=== PATIENT | female | born 2000 | race Caucasian/White ===

== ENCOUNTER 2020-09-10 19:16 | Emergency (ER) | payer OTHER, SELFPAY ==
--- NOTE | ~2020-09-10 | CT_ITS ---
EXAMINATION: CT abdomen pelvis w con INDICATION: Right lower quadrant pain TECHNIQUE: Computed tomographic images of the abdomen and pelvis were obtained after the administrati on of 100 cc of Omnipaque 350 intravenous contrast. The dose-length product (DLP) was 415.92 mGy-cm. Automated exposure control and iterative reconstruction technique were employed. COMPARISON: None available FINDINGS: The lung bases are clear. The heart size is normal. The liver, spleen, pancreas, gallbladde r, and adrenal glands are normal. The kidneys are unremarkable. The appendix is normal. No pathologic ally enlarged abdominal or pelvic lymph nodes are identified. There is no free intraperitoneal gas or evidence of bowel obstruction. A contraceptive device is noted in the vagina. IMPRESSION: 1. No CT correlate for the patient's symptoms. Reviewed, dictated and finalized at location A.
[2020-09-10 19:28] VITALS: BP 122/78; PULSE 105; RESP 20; TEMP 36.4; O2SAT 98
--- NOTE | 2020-09-10 19:34 | ED.GENADULT ---
HPI - General Adult General Chief complaint: Abdominal Pain Stated complaint: righ side abdominal pain Time Seen by Provider: 09/10/20 19:30 Source: RN notes reviewed History of Present Illness HPI narrative: Patient presents emergency department from home for abdominal pain. Patient states abdominal pain has been ongoing for the past 1 month. She states the pain initially began was over on the right side of her abdomen she called her PCP and was placed on omeprazole which she did have improvement of the pain. She states the pain has returned to the past several weeks and progressively worsen she denies any fevers or chills chest pain shortness of breath nausea vomiting diarrhea or any other symptoms Related Data Allergies Allergy/AdvReac Type Severity Reaction Status Date / Time No Known Allergies Allergy Unverified 09/13/18 20:19 Review of Systems Review of Systems: Narrative: Gen.: Denies fevers or chills ENT: Denies congestion Respiratory: Denies shortness of breath or cough CV: Denies chest pain or palpitations GI: See HPI denies burning, urgency, frequency or hematuria Musculoskeletal: Denies back pain or muscle pain Neuro: Denies numbness, tingling, weakness or focal weakness Skin: Denies rash Except as documented, all other systems reviewed and negative PMFSH Past Medical History Medical History (Updated 09/10/20 @ 21:30 by Simone Griffin DO) Patient denies significant medical history Social History Social History (Updated 09/10/20 @ 19:35 by Simone Griffin DO) Smoking status: Never smoker Exam Narrative: Exam Narrative: APPEARANCE: No acute distress, nontoxic, resting in bed HEENT: Normocephalic, atraumatic, OMM RESPIRATORY: No respiratory distress, clear to auscultation bilaterally with no rhonchi wheezing or rales CARDIOVASCULAR: RRR s murmur ABDOMINAL: Soft nondistended tender palpation in epigastric and right upper quadrant no tenderness right lower quadrant and left lower quadrant left upper quadrant no rebound or guarding MUSCULOSKELETAl: Moves all extremities. No clubbing, cyanosis or edema. NEURO: Awake and alert. Following commands, speech normal, no focal deficits SKIN:: Warm, dry. Normal Color PSYCHIATRIC: Normal affect/mood Course Course Emergency Course: Patient states abdominal pain has resolved following GI cocktail Patient states that they are feeling much better at this time. States abdominal pain has resolved. Repeat abdominal exam shows the patient's abdomen to be soft and nontender. Discussed with patient results of workup and diagnosis. Discussed need for follow-up with primary care physician, reasons to return to the emergency department in proper use of medication. Patient understands and agrees to current treatment plan Vital Signs Vital signs: Vital Signs Temperature 97.5 F L 09/10/20 19:28 Pulse Rate 105 H 09/10/20 19:28 Respiratory Rate 20 09/10/20 19:28 Blood Pressure 122/78 09/10/20 19:28 Pulse Oximetry 98 09/10/20 19:28 Temperature 97.5 F L 09/10/20 19:28 Pulse Rate 105 H 09/10/20 19:28 Respiratory Rate 20 09/10/20 19:28 Blood Pressure 107/65 09/10/20 21:02 Pulse Oximetry 98 09/10/20 19:28 Medical Decision Making MDM Narrative Medical decision making narrative: Patient's abdomen is soft without significant pain or signs of surgical abdomen on serial exams. Lab and x-ray evaluations are reviewed and patient is felt to be a reasonable candidate for outpatient management. Patient was instructed as to limitations of x-ray and laboratory evaluation and encouraged to return to ED or primary physician for repeat exam in 12 hours if continued or worsening pain Vital Signs Vital Signs: Vital Signs Temperature 97.5 F L 09/10/20 19:28 Pulse Rate 105 H 09/10/20 19:28 Respiratory Rate 20 09/10/20 19:28 Blood Pressure 122/78 09/10/20 19:28 Pulse Oximetry 98 09/10/20 19:28 Temperature 97.5 F L 09/10/20 19:28 Pulse
[2020-09-10] MEDS: SODIUM CHLORIDE 0.9% IV 1,000 ML 999 ML IV CONT (20:03)
[2020-09-10 20:17] LABS: Basophils Percent Auto 0.5 % (0.2-1.2); Eosinophils Absolute Auto 0.1 K/mm3 (0-0.3); Eosinophils Percent Auto 1.5 % (0-4.4); Hematocrit 41.4 % (37.0-47.0); Hemoglobin 13.8 g/dL (12.0-15.0); Immature Granulocyte Absolute 0.01 K/mm3 (0.00-0.031); Immature Granulocyte Percent A 0.1 % (0-0.5); Lymphocytes Absolute Auto 2.49 K/mm3 (0.9-3.2); Lymphocytes Percent Auto 33.9 % (18.3-44.2); Mean Corpuscular HGB Conc 33.3 g/dl (32-36); Mean Corpuscular Hemoglobin 28.8 pg (26-34); Mean Corpuscular Volume 86.3 fl (80-100); Mean Platelet Volume 10.9 fl (7.4-10.4); Monocytes Absolute Auto 0.6 K/mm3 (0.1-0.6); Monocytes Percent Auto 7.8 % (2.6-8.5); Neutrophils Absolute Auto 4.1 K/mm3 (1.3-6.7); Neutrophils Percent Auto 56.2 % (45.5-73.1); Platelet Count Result 189 k/mm3 (150-375); Red Cell Distribution Width 11.9 % (11.5-14.5); White Blood Count 7.4 K/mm3 (4.5-10.0)
[2020-09-10 20:25] LABS: Add Urine Microscopic? YES; Appearance Urine Cloudy (Clear); Bacteria Urine Trace /hpf; Bilirubin Urine Negative (Negative); Blood Urine Negative (Negative); Color Urine Yellow (Yellow); Glucose Urine UA Negative (Negative); Ketones Urine Negative (Negative); Leukocyte Esterase Ur Negative LEU/UL (Negative); Mucus Urine Heavy /lpf; Nitrate Urine Negative (Negative); Protein Urine 1+ mg/dL (Negative); RBC Urine 0-2 /hpf (0-2); Specific Grav Ur 1.025 (1.001-1.035); Squamous Epithelial Cell Urine Rare /hpf (Few); Urobilinogen Urine Negative mg/dL (<2.0); WBC Urine 0-3 /hpf
[2020-09-10 20:29] LABS: Alanine Aminotransferase 23 U/L (4-35); Alkaline Phosphatase 60 U/L (38-126); Anion Gap 5 mmol/L (8-16); Aspartate Amino Transferase 23 U/L (14-36); Bilirubin,Total 0.2 mg/dL (0.2-1.3); Blood Urea Nitrogen 10 mg/dL (7-17); Carbon Dioxide 28 mmol/L (22-30); Chloride 104 mmol/L (98-107); Estimated CRCL calculation 106 ml/min; Estimated Glomerular Filt Rate > 60; Glucose 89 mg/dL (65-105); Lipase 80 U/L (23-300); Sodium 137 mmol/L (137-145)
[2020-09-10 21:02] VITALS: BP 107/65
[2020-09-10] MEDS: PANTOPRAZOLE SODIUM IV 40 MG VIAL IV PUSH (21:41)
== END 2020-09-10 21:54 | disposition home or self-care (01) ==
PROVIDERS: Emergency Provider Emergency Medicine
DX: R10.13 Epigastric pain (principal)
CPT/HCPCS: 36415; 74177; 80053; 81001; 81025; 83690; 85025; 96361; 96374; 99284; A9270; C9113; J7030; Q9967

== ENCOUNTER 2020-09-15 09:27 | Outpatient (CLI) | payer OTHER, SELFPAY ==
[2020-09-15 10:04] LABS: Eosinophils Absolute Auto 0.1 K/mm3 (0-0.3); Eosinophils Percent Auto 1.4 % (0-4.4); Hematocrit 40.6 % (37.0-47.0); Hemoglobin 13.6 g/dL (12.0-15.0); Immature Granulocyte Absolute 0.01 K/mm3 (0.00-0.031); Immature Granulocyte Percent A 0.2 % (0-0.5); Lymphocytes Percent Auto 41.1 % (18.3-44.2); Mean Corpuscular HGB Conc 33.5 g/dl (32-36); Mean Corpuscular Hemoglobin 28.8 pg (26-34); Mean Corpuscular Volume 85.8 fl (80-100); Mean Platelet Volume 10.6 fl (7.4-10.4); Monocytes Absolute Auto 0.4 K/mm3 (0.1-0.6); Monocytes Percent Auto 8.5 % (2.6-8.5); Neutrophils Percent Auto 47.8 % (45.5-73.1); Platelet Count Result 182 k/mm3 (150-375); Red Blood Count 4.73 M/mm3 (4.2-5.4); Red Cell Distribution Width 11.9 % (11.5-14.5); White Blood Count 4.1 K/mm3 (4.5-10.0)
[2020-09-15 10:18] LABS: Alanine Aminotransferase 27 U/L (4-35); Albumin Level 4.2 g/dL (3.5-5.1); Alkaline Phosphatase 59 U/L (38-126); Anion Gap 5 mmol/L (8-16); Aspartate Amino Transferase 27 U/L (14-36); Bilirubin,Total 0.3 mg/dL (0.2-1.3); Blood Urea Nitrogen 10 mg/dL (7-17); Calcium 9.6 mg/dL (8.4-10.2); Carbon Dioxide 29 mmol/L (22-30); Chloride 105 mmol/L (98-107); Cholesterol 148 mg/dL (0-200); Estimated Glomerular Filt Rate > 60; Glucose 96 mg/dL (65-105); HDL Direct 58 mg/dL; Potassium 4.1 mmol/L (3.4-5.0); Sodium 139 mmol/L (137-145); Triglycerides 61 mg/dL (<150)
[2020-09-15 10:29] LABS: LDL Cholesterol Direct 74 mg/dL
[2020-09-15 10:53] LABS: Total Triiodothyronine (T3) 1.62 NG/ML (0.97-1.69)
[2020-09-15 10:58] LABS: Free T4 Free Thyroxine 0.99 ng/mL (0.78-2.19); Vitamin D 25 Hydroxy 46.2 ng/mL
== END 2020-09-15 09:28 | disposition home or self-care (01) ==
PROVIDERS: PCP Family Medicine; Visit Provider Nurse Practitioner Family
DX: Z13.6 Encounter for screening for cardiovascular disorders (principal); E55.9 Vitamin D deficiency, unspecified; Z13.29 Encounter for screening for other suspected endocrine disorder; Z00.00 Encounter for general adult medical examination without abnormal findings
CPT/HCPCS: 36415; 80053; 80061; 82306; 84439; 84443; 84480; 85025

== ENCOUNTER → 2020-12-09 00:35 | Outpatient (CLI) | payer OTHER, SELFPAY ==
[2020-12-09 21:19] LABS: SARS-CoV-2 RNA PCR Negative
== END ==
PROVIDERS: PCP Family Medicine; Visit Provider Internal Medicine Gastroenterology
DX: Z01.812 Encounter for preprocedural laboratory examination (principal); Z20.822 Contact with and (suspected) exposure to COVID-19
CPT/HCPCS: C9803; U0003; U0005

== ENCOUNTER 2020-12-13 01:44 | Day surgery (SDC) | payer OTHER, SELFPAY ==
[2020-11-27 12:00] VITALS: BMI 22.1
--- NOTE | 2020-12-13 09:23 | WPDANESEPPF ---
Anes - Initial Pre Proc Eval Procedure: Operation Date: 12/13/20 11:15 Proposed Procedures p Esophagogastroduodenoscopy - Enrrique Gibbons MD Date/Time: 12/13/20 09:23 Surgeon: Enrrique Gibbons MD Pre Op Diagnosis: gerd, abdom Patient Data Age: 20 Gender: F Height: 1.7 m Weight: 64 kg Allergies Allergy/AdvReac Type Severity Reaction Status Date / Time No Known Allergies Allergy Verified 12/13/20 10:26 Home Medications Medication Instructions Recorded Confirmed Type pantoprazole 40 mg tablet,delayed 40 mg PO HS #30 tablet 10/16/20 11/27/20 Rx release Patient hx anesthesia problems: none Family hx anesthesia problems: none PMFSH Past Medical History Medical History (Updated 12/13/20 @ 09:24 by Jimbo Lambert MD) Chronic GERD Depression Tobacco abuse Social History Social History (Updated 09/10/20 @ 19:35 by Simone Griffin DO) Smoking status: Current every day smoker Tobacco type: e-cigarettes/vaping Alcohol intake: never Substance use: never Substance use type: does not use Living arrangements: with family Spiritual care concerns: No Anes - Eval Final PreProcedure Day of Procedure 12/13/20 09:23 Patient weight: normal Heart: regular rate and rhythm Lungs: clear to auscultation and normal air movement Airway: Mallampati scale class II Neurological: alert and oriented Last oral intake: >/= 8 hours ASA classification: II Emergent: no Anesthetic plan: proceed Anesthesia type and monitoring: general GIVS Informed Consent: The patient's anesthetic plan and its attendant risks and benefits were discussed with the patient/family/POA. Questions were solicited and answers provided to the satisfaction of the patient/family/POA.
[2020-12-13 10:27] VITALS: BP 103/75; PULSE 74; RESP 18; TEMP 36.1; O2SAT 100
[2020-12-13] MEDS: LACTATED RINGERS 1,000 ML 150 ML IV CONT (10:38)
--- NOTE | 2020-12-13 10:59 | PM.HPGS ---
History of Present Illness History of Present Illness Consent: Risks, benefits, and alternatives have been discussed and questions answered. Patient agrees to proceed with procedure. Chief complaint: gerd, abdom Narrative: Radha Zaragoza is a 20 year old female with c/o reflux and abdominal pain for past 3-4 months, CT scan negative, better with protonix. Never had EGD Review of Systems Constitutional: Constitutional: Denies headache(s) and Denies weakness Eyes: Eyes: Denies blurry vision ENT: Reports Normal hearing present, Denies headache(s) and Denies neck pain Cardiovascular: Cardiovascular: Denies chest pain and Denies dyspnea Respiratory: Respiratory: Denies dyspnea Gastrointestinal: Gastrointestinal: Reports no additional gastrointestinal complaints Genitourinary: Genitourinary: Denies dysuria Musculoskeletal: Musculoskeletal: Denies neck pain Integumentary/Breasts: Skin/Breast: Denies dry skin Neurologic: Reports Normal hearing present, Denies headache(s) and Denies weakness Psychiatric: Psychiatric: Denies anxiety Endocrine: Endocrine: Denies change in body appearance Hematologic/Lymphatic: Hematologic/Lymphatic: Denies easy bleeding Allergic/Immunologic: Allergic/Immunologic: Denies urticaria PMFSH Past Medical History Medical History (Updated 12/13/20 @ 09:24 by Jimbo Lambert MD) Chronic GERD Depression Tobacco abuse Social History Social History (Updated 09/10/20 @ 19:35 by Simone Griffin DO) Smoking status: Current every day smoker Tobacco type: e-cigarettes/vaping Alcohol intake: never Substance use: never Substance use type: does not use Living arrangements: with family Spiritual care concerns: No Meds Home Medications and Allergies Home Medications Medication Instructions Recorded Confirmed Type pantoprazole 40 mg tablet,delayed 40 mg PO HS #30 tablet 10/16/20 11/27/20 Rx release Allergies Allergy/AdvReac Type Severity Reaction Status Date / Time No Known Allergies Allergy Verified 12/13/20 10:26 Vital Signs Vital Signs - 24 hr 12/13/20 10:27 Temperature 97.0 F L Pulse Rate 74 Respiratory Rate 18 Blood Pressure 103/75 Pulse Oximetry 100 Exam Const: General: comfortable and no acute distress HENMT: General nose exam: Normal nares present Eyes: General: appearance normal, both eyes and all related structures Neck: Neck: no JVD Resp: Auscultation: clear to auscultation bilaterally Cardio: Rate: regular rate Rhythm: regular rhythm GI: Inspection: non-distended GI Palp: Yes Soft to palpation Skin: General skin exam: normal color Neuro: General: gait normal Speech: normal speech Extrem: General: normal to inspection Psych: Mental Status: mental status grossly normal Assessment and Plan Assessment and plan (1) Chronic GERD: Code(s): K21.9 - Gastro-esophageal reflux disease without esophagitis Status: Acute Assessment and Plan: egd with bx
[2020-12-13] MEDS: BENZOCAINE (*SP) 60 ML SPRAY CAN (HURRICAINE) 1 SPRAY MUCOUS MEM (11:08)
[2020-12-13 11:21] VITALS: BP 105/65; PULSE 85; RESP 16; O2SAT 100
[2020-12-13 11:31] VITALS: BP 101/62; PULSE 85; RESP 16; O2SAT 100
[2020-12-13 11:41] VITALS: BP 99/60; PULSE 69; RESP 16; O2SAT 100
== END 2020-12-13 11:55 | disposition home or self-care (01) ==
PROVIDERS: PCP Family Medicine; Visit Provider Internal Medicine Gastroenterology
PROC: 0DJ08ZZ Inspection of Upper Intestinal Tract, Via Natural or Artificial Opening Endoscopic (ICD-10-PCS; CPT 43235; principal; 2020-12-13 11:15)
DX: K21.9 Gastro-esophageal reflux disease without esophagitis (principal); K29.70 Gastritis, unspecified, without bleeding; R07.89 Other chest pain; F17.290 Nicotine dependence, other tobacco product, uncomplicated
CPT/HCPCS: 43239; 88305; J2704; J7120

== ENCOUNTER 2022-08-14 12:13 | Emergency (ER) | payer BC, SELFPAY ==
[2022-08-14 12:19] VITALS: BP 115/65; PULSE 96; RESP 16; TEMP 36.8; O2SAT 100
--- NOTE | 2022-08-14 13:17 | ED.PREGNANCY ---
HPI - General Chief complaint: Vaginal Bleeding Stated complaint: Vag bleeding, around 15 weeks Time Seen by Provider: 08/14/22 12:34 History of Present Illness HPI Narrative: 22-year-old female with confirmed IUP presenting at 15 weeks G1, P0 with vaginal bleeding, she states she was having sexual intercourse with her partner when she noticed some vaginal bleeding; it has since stopped but she called her OB who told her to come in. Denies any pain in her vagina or abdomen/pelvis. Related Data Allergies Allergy/AdvReac Type Severity Reaction Status Date / Time No Known Allergies Allergy Verified 08/14/22 12:14 Review of Systems Review of Systems: CONST: No fever. HEENT: No sore throat C/V: No chest pain RESP: No difficulty breathing GI: No abdominal pain, nausea, vomiting : Vaginal bleeding, now resolved. M/S: No joint pain. SKIN: No rash. NEURO: [No headache or focal numbness or weakness] PSYCH: [No depression] [facility] Past Medical History Medical History Chronic GERD Depression Tobacco abuse Social History Social History Smoking status: Current every day smoker Tobacco type: e-cigarettes/vaping Alcohol intake: never Substance use: never Substance use type: does not use Living arrangements: with family Spiritual care concerns: No Exam Narrative: EXAMINATION OF ORGAN SYSTEMS/BODY AREAS: Constitutional: Vital signs per nursing GENERAL:[No acute distress, non-toxic appearing.] HEAD: Normal with no signs of head trauma. EYES: EOMI, conjunctiva normal ENT: Hearing grossly intact LUNGS: Nonlabored breathing. HEART: [Regular rate and rhythm] ABD: [Soft], [nontender to palpation] PELVIS: No cervical motion tenderness or vaginal bleeding; cervix is high and closed EXT: Normal range of motion SKIN: [No rashes or lesions.] NEURO: [Alert and oriented x 3. No gross focal sensory or strength deficits.] PSYCH: Normal affect Course Vital Signs Vital signs: Vital Signs Temperature 98.2 F 08/14/22 12:19 Pulse Rate 96 08/14/22 12:19 Respiratory Rate 16 08/14/22 12:19 Blood Pressure 115/65 08/14/22 12:19 Pulse Oximetry 100 08/14/22 12:19 Oxygen Delivery Room Air 08/14/22 12:19 Temperature 98.2 F 08/14/22 12:19 Pulse Rate 96 08/14/22 12:19 Respiratory Rate 16 08/14/22 12:19 Blood Pressure 115/65 08/14/22 12:19 Pulse Oximetry 100 08/14/22 12:19 Oxygen Delivery Room Air 08/14/22 12:19 MDM - OB/Uterine Contractions MDM Narrative Medical decision making narrative: 22-year-old female presenting with episode of vaginal bleeding at 15 weeks after sexual intercourse, bleeding has since stopped, on exam she is well-appearing, abdomen is soft and nontender, cervix is closed, she has no tenderness on pelvic exam, no active bleeding. Bedside ultrasound performed by myself does confirm intrauterine , with heart rate and movement. CBC and blood type obtained, hemoglobin is stable, she is O- so I will give her a dose of RhoGAM for threatened . I have discussed this diagnosis with the patient and her family, and she will be asked to follow-up with her DESKIDDING MACHINE OPERATOR in the next 1-2 days. She is to return for any worsening bleeding or any other concerns. Patient just received call from her OB that she tested positive for chlamydia; her OB has sent her abx to the pharmacy but patient would like to just be treated here. I will go ahead and treat presumptively for G/C with ceftriaxone and azithromycin and I have informed her and parent that her partner will also need to be treated for G/C and they should abstain for at least 1 week until both fully treated. Lab Data 08/14/22 13:10 Labs: Lab Results 08/14/22 08/14/22 08/14/22 Range/Units 13:10 13:10 13:10 WBC 8.0 (4.5-10.0) K/mm3 RBC 3.83 L (4.2-5.4)
[2022-08-14 13:20] LABS: Basophils Percent Auto 0.5 % (0.2-1.2); Eosinophils Absolute Auto 0.1 K/mm3 (0-0.3); Eosinophils Percent Auto 0.9 % (0-4.4); Hematocrit 34.2 % (37.0-47.0); Hemoglobin 11.6 g/dL (12.0-15.0); Immature Granulocyte Absolute 0.03 K/mm3 (0.00-0.031); Immature Granulocyte Percent A 0.4 % (0-0.5); Lymphocytes Absolute Auto 1.78 K/mm3 (0.9-3.2); Lymphocytes Percent Auto 22.3 % (18.3-44.2); Mean Corpuscular HGB Conc 33.9 g/dl (32-36); Mean Corpuscular Hemoglobin 30.3 pg (26-34); Mean Corpuscular Volume 89.3 fl (80-100); Mean Platelet Volume 10.7 fl (7.4-10.4); Monocytes Absolute Auto 0.5 K/mm3 (0.1-0.6); Monocytes Percent Auto 5.8 % (2.6-8.5); Neutrophils Absolute Auto 5.6 K/mm3 (1.3-6.7); Neutrophils Percent Auto 70.1 % (45.5-73.1); Platelet Count Result 219 k/mm3 (150-375); Red Blood Count 3.83 M/mm3 (4.2-5.4); Red Cell Distribution Width 12.6 % (11.5-14.5)
[2022-08-14] MEDS: AZITHROMYCIN 250 MG TABLET 1000 MG PO (14:15)
[2022-08-14] MEDS: cefTRIAXone 1 GM VIAL 0.5 GM IM (14:16)
[2022-08-14] MEDS: LIDOCAINE HCL 1% LOCAL INJ 10 ML VIAL (14:21)
[2022-08-14] MEDS: RHO(D) IMMUNE GLOBULIN 300 MCG/2 ML SYRINGE IM (14:54)
[2022-08-14 14:57] VITALS: BP 135/76; PULSE 92; RESP 17; O2SAT 99
== END 2022-08-14 14:58 | disposition home or self-care (01) ==
PROVIDERS: Emergency Provider Emergency Medicine
DX: O20.0 Threatened abortion (principal); O99.332 Smoking (tobacco) complicating pregnancy, second trimester; F17.290 Nicotine dependence, other tobacco product, uncomplicated; Z3A.15 15 weeks gestation of pregnancy
CPT/HCPCS: 36415; 84702; 85025; 85461; 86850; 86900; 86901; 90384; 96372; 99284; A9270; J0696; J2790

== ENCOUNTER 2022-12-04 13:01 | Observation (INO) | payer BC, SELFPAY ==
[2022-12-04] VITALS (23 sets, daily range): BP systolic 114–128; BP diastolic 66–89; PULSE 74–110; O2SAT 92–100; BMI 29.3
[2022-12-04 14:20] LABS: Appearance Urine Cloudy (Clear); Bacteria Urine None Seen /hpf; Bilirubin Urine Negative (Negative); Blood Urine Trace (Negative); Color Urine Yellow (Yellow); Glucose Urine UA Negative (Negative); Ketones Urine Negative (Negative); Leukocyte Esterase Ur Trace LEU/UL (Negative); Nitrate Urine Negative (Negative); Non Pathogenic Casts 0-2; Protein Urine Trace mg/dL (Negative); RBC Urine 0-2 /hpf (0-2); Specific Grav Ur 1.014 (1.001-1.035); Squamous Epithelial Cell Urine Occasional /hpf (Few); WBC Urine 0-5 /hpf; pH Urine 8.5 (5.0-9.0)
[2022-12-04 14:38] LABS: Add Urine Microscopic? YES
[2022-12-04] MEDS: TERBUTALINE SULFATE 1 MG/ML VIAL 0.25 MG SUB-Q (15:37)
--- NOTE | 2022-12-04 16:40 | LDADM ---
This patient, Radha Trujillo, was admitted to Labor/Delivery/Recovery 105 on 12/04/22 at 13:01. Plans for labor, pain management and were discussed with patient. Patient/family oriented to hospital policies and general routines including ID bracelet, bed and alarms, visiting hours, pain management, procedures, bathroom and other care routines, personal items, smoking policy, room service/diet and guest tray routines, security routines, and visiting hours. Patient/Family are encouraged to report perceived risks to care and to ask questions if they do not understand what they are told or what they should do. See OBIX for further documentation.
--- NOTE | 2022-12-05 16:45 | P.PNOB_ITS ---
OB - Triage/Final Diagnosis Visit Information Comments/Additional reasons for admission: I have assessed the risk for this patient, Radha Trujillo, and determined that she would benefit from observation care. Evaluation Laboratory results: Laboratory Tests 12/04/22 14:07 Urine Color Yellow Urine Appearance Cloudy H Urine pH 8.5 Ur Specific [place] 1.014 Urine Protein Trace Urine Glucose (UA) Negative Urine Ketones Negative Ur Blood (Man) Trace Urine Nitrate Negative Urine Bilirubin Negative Urine Urobilinogen 1.0 Leukocyte Esterase Rfl Trace H Urine RBC 0-2 Urine WBC 0-5 Ur Squamous Epith Cells Occasional Urine Bacteria None seen Urine Casts 0-2 Final Diagnosis (1) Abdominal pain affecting : Code(s): O26.899 - Other specified related conditions, unspecified trimester; R10.9 - Unspecified abdominal pain Status: Acute
== END 2022-12-04 17:00 | disposition home or self-care (01) ==
PROVIDERS: Admitting Provider Obstetrics & Gynecology; Visit Provider Obstetrics & Gynecology
DX: O26.899 Other specified pregnancy related conditions, unspecified trimester (principal); R10.9 Unspecified abdominal pain; Z3A.00 Weeks of gestation of pregnancy not specified
CPT/HCPCS: 81001; 96372; G0378; G0379; J3105

== ENCOUNTER 2022-12-08 11:08 | Observation (INO) | payer BC, SELFPAY ==
[2022-12-08 11:28] VITALS: BP 114/73; PULSE 106
[2022-12-08 11:30] VITALS: BP 116/77; PULSE 124
[2022-12-08 12:00] VITALS: BP 121/85; PULSE 100
[2022-12-08 12:30] VITALS: BP 125/76; PULSE 113
--- NOTE | 2022-12-12 21:52 | PM.OBTRLD ---
OB - Triage/Final Diagnosis Visit Information Reason for evaluation: threatened labor Comments/Additional reasons for admission: I have assessed the risk for this patient, Radha David Trujillo, and determined that she would benefit from observation care.
== END 2022-12-08 13:00 | disposition home or self-care (01) ==
PROVIDERS: Admitting Provider Obstetrics & Gynecology; Visit Provider Obstetrics & Gynecology
DX: O47.03 False labor before 37 completed weeks of gestation, third trimester (principal); Z3A.36 36 weeks gestation of pregnancy
CPT/HCPCS: G0378; G0379

== ENCOUNTER 2023-07-25 23:42 | Emergency (ER) | payer OTHER, SELFPAY ==
[2023-07-25 23:43] VITALS: BP 122/80; PULSE 105; RESP 18; TEMP 36.6; O2SAT 99
[2023-07-26 00:44] LABS: Influenza A QL RT-PCR Negative (Negative); Influenza B QL RT-PCR Negative (Negative); RSV RNA, RT-PCR Negative (Negative); SARS-CoV-2 RNA PCR Positive (Negative)
--- NOTE | 2023-07-26 02:29 | PC.NURSE ---
Patient comes to the front desk worker and states she needs to take her baby home and does not wish to be evaluated any longer. Patient ambulates out of the waiting room without incident and in no apparent distress.
== END 2023-07-26 03:41 | disposition left against medical advice (07) ==
LOC: ANHED 07-26 02:40
PROVIDERS: Emergency Provider Emergency Medicine
DX: U07.1 COVID-19 (principal)
CPT/HCPCS: 87637; 99199

== ENCOUNTER 2024-09-01 11:08 | Outpatient (CLI) | payer OTHER, SELFPAY ==
[2024-09-01 12:13] LABS: Beta HCG Quantitative < 2.39 mIU/ML
[2024-09-01 12:28] LABS: Hepatitis B Surface Antigen Negative (Negative)
[2024-09-01 12:34] LABS: HAV RESULT Negative (Negative); HIV 1/2 Ab P24 Ag Result Negative (Negative); Hepatitis B Core IgM Result Negative (Negative)
--- OUTSIDE RECORDS SUMMARY | 2024-09-01 12:52 | XMS_ITS | Clinical Summary ---
Author Organization [facility] Address [address] [place] [id number] Care Team Providers Care Quantitative Analyst Developer Name Role Phone Unavailable Primary Care Provider Unavailabl e Social History Tobacco Use Types Packs/Day Years Used Date Smoking Tobacco: Never Assessed Comments Unknown Sex and Gender Information Value Date Recorded Sex Assigned at Not on file Legal Sex Female 9:01 PM CDT Gender Identity Not on file Sexual Orientation Not on file Last Filed Vital Signs Vital Sign Reading Time Taken Comments Blood Pressure 100/64 12/31/2017 1:44 PM CDT Pulse 82 12/31/2017 1:44 PM CDT Temperature - - Respiratory Rate - - Oxygen Saturation - - Inhaled Oxygen Concentration - - Weight 57.6 kg (127 lb) 12/31/2017 1:44 PM CDT Height 167.6 cm (5' 6 ) 12/31/2017 1:44 PM CDT Body Mass Index 20.5 12/31/2017 1:44 PM CDT Plan of Treatment Health Maintenance Due Date Last Done Comments Cervical Cancer Screening Pa p Smear (Age 21 to 29) Every 3 Years 1998 Cervical Cancer Screening 1998 Annual Physical 2001 HPV Vaccines (1 - 3-dose series) 2013 Hepatitis C 2016 DTaP, Tdap and Td Vaccines ( 1 - Tdap) 2017 Hepatitis B Vaccines (1 of 3 - 19+ 3-dose series) 2017 COVID-19 Vaccine (2023-2 5 season) 2024 Meningococcal B Vaccine Aged Out No l onger eligible based on patient's age to complete this topic Meningococcal Vaccine Aged Out No cindy boston eligible based on patient's age to complete this topic Pneumococcal Vaccine: Pediat rics (0 to 5 Years) and At-Risk Patients (6 to 64 Years) Aged Out No longer eligible b ased on patient's age to complete this topic RSV Immunizations Under 20 Months Aged Out No longer eligible based on patient's age to complete this topic
--- OUTSIDE RECORDS SUMMARY | 2024-09-01 12:52 | XMS_ITS | Encounter Summary ---
Author Organization [facility] Address [address] [place] [address] Care Team Providers Care Cosmetic Assembler Name Role Phone Sharla Hay MD Primary Care Provider Encounter Details Date Type Department Care Team (Late st Contact Info) Description 10/30/2022 Telephone [facility] tocario [facility] [address] [place] [address] Radha Martínez Social History Tobacco Use Types Packs/Day Years Used Date Smoking Tobacco: Never Assessed Comments Yes Sex and Gender Information Value Date Recorded Sex Assigned at Not on file Gender Identity Not on file Sexual Orientation Not on file documented as of this encounter Plan of Treatment Not on file documented as of this encounter Visit Diagnoses Not on filedocumented in this encounter Care Teams Cosmetic Assembler Relationship Specialty Start Date End Date Sharla Hay MD [address] [facility] [address] [place] [id number] PCP - General 12/14/20 documented as of this encounter
--- OUTSIDE RECORDS SUMMARY | 2024-09-01 12:52 | XMS_ITS | Encounter Summary ---
Author Organization [facility] Address [address] [place] [id number] Care Team Providers Care Deliver Driver Name Role Phone Unavailable Primary Care Provider Unavailabl e Encounter Details Date Type Department Care Team (Late st Contact Info) Description 02/04/2018 Abstract [facility] Family [facility] Internal Medicine [address] [address] Teresita Grayson APNP [address] [place] [address] [id number] Social History Tobacco Use Types Packs/Day Years [...]
--- OUTSIDE RECORDS SUMMARY | 2024-09-01 12:52 | XMS_ITS | CONTINUITY OF CARE DOCUMENT ---
Author Name marlen gee Address Unknown Organization [facility] Address [address] [place] [address] Phone [phone] Care Team Providers Care Muck Boss Name Role Phone Ángel ARREDONDO, Yudith Unavailable [phone] Yudith Neal MD Unavailable [phone] INS[employer]ANCE [employer] Payer name Policy type / Coverage type Simon red democrat [place] MED[place] (2) Medicaid [id number]
--- OUTSIDE RECORDS SUMMARY | 2024-09-01 12:52 | XMS_ITS | Clinical Summary ---
Author Organization [facility] Address [address] [place] [address] Care Team Providers Care Poultry Process Worker Name Role Phone Sharla Hay MD Primary Care Provider [phone] [facility],non-owned Affiliates and Associated Physician Practices is amultiple site organization consisting of ambulatory clinics and hospital sitesin [place], [place], [place] and [place]. This disclosure is being madepursuant to the Care Everywhere program and may not contain all information available regarding this patient. Last updated 18.[facility] [employer] Allergies No known active allergies Social History Tobacco Use Types Packs/Day Years Used Date Smoking Tobacco: Never Assessed Sex and Gender Information Value Date Recorded Sex Assigned at Not on file Gender Identity Not on file Sexual Orientation Not on file Last Filed Vital Signs Vital Sign Reading Time Taken Comments Blood Pressure 125/70 03/19/2016 6:30 PM CDT Pulse 101 03/19/2016 6:30 PM CDT Temperature 36.7 C (98.1 F) 03/19/2016 3:54 PM CDT Respiratory Rate 19 03/19/2016 4:28 PM CDT Oxygen Saturation 100% 03/19/2016 6:30 PM CDT Inhaled Oxygen Concentration - - Weight 59 kg (130 lb) 03/19/2016 3:55 PM CDT Height 162.6 cm (5' 4 ) 03/19/2016 3:55 PM CDT Body Mass Index 22.31 03/19/2016 3:55 PM CDT Plan of Treatment Health Maintenance Due Date Last Done Comments PAP SMEAR 1998 HIV SCREENING 2013 HPV VACCINE (1 - 3-dose series) 2013 HEPATITIS C SCREENING 03/05/2016 DTAP/TDAP/TD VACCINES (1 - Tdap) 2017 HEPATITIS B VACCINE (1 of 3 - 19+ 3-dose series) 2017 COVID-19 VACCINE (2 - 2023-2 5 season) 2024 12/05/2020 DEPRESSION SCREENING 06/02/2024 ZOSTER VACCINE (1 of 2) 2048 INFLUENZA VACCINE Completed 06/15/2024, 05/11/2003 HIB VACCINE Aged Out No longer eligi ble based on patient's age to complete this topic MENINGOCOCCAL (Group B) VACCINE SHARED DECISION-MAKING Aged Out No longer eligible based on patient's age to complete this topic MENINGOCOCCAL GROUPS A/C/Y/W VACCINE Aged Out No longer eligible b ased on patient's age to complete this topic PNEUMOCOCCAL VACCINE Aged Out No long er eligible based on patient's age to complete this topic Care Teams Poultry Process Worker Relationship Specialty Start Date End Date Sharla Hay MD [facility] [address] [place] [address] PCP - General 12/14/20
[2024-09-01 13:32] LABS: Hepatitis C Virus Antibody Negative (Negative)
[2024-09-03 15:18] LABS: RPR Screen NON-REACTIVE (NON-REACTIVE)
== END 2024-09-01 11:09 | disposition home or self-care (01) ==
PROVIDERS: Visit Provider Student in an Organized Health Care Education/Training Program
DX: Z20.2 Contact with and (suspected) exposure to infections with a predominantly sexual mode of transmission (principal); N91.2 Amenorrhea, unspecified
CPT/HCPCS: 36415; 80074; 84702; 86592; 86695; 86696; 86703; G0432